=== PATIENT | male | born 1995 | race Two or more races ===

== ENCOUNTER 2020-01-25 16:06 | Emergency (ER) | payer OTHER ==
[~2020-01-25] VITALS: Ht 188 cm; Wt 107.0 kg
[2020-01-25 16:16] VITALS: BP 146/66
--- NOTE | 2020-01-25 16:52 | PHYS DOC ---
General Adult EDM: Chief Complaint: LACERATION/AVULSION HPI: HPI: 24 yo M with no significant pmh, [place] to the ED with complaints of cut to his right leg while he was running outside just prior to arrival. Patient reports he was running downhill, lost his balance, hit his leg, tree branch. Did not hit his head or lose consciousness. Is not on any anticoagulants or new influence of alcohol or drugs. Vaccines are UTD including tetanus. Denies any underlying bone tenderness to the knee or ankle. Review of Systems: Review of Systems: Constitutional: Denies fever or chills HENT: Denies nasal congestion or sore throat Respiratory: Denies cough or shortness of breath Cardiovascular: Denies chest pain or hemoptysis GI: Denies abdominal pain, nausea, vomiting,or diarrhea Musculoskeletal: Denies back pain or joint pain Integument: Denies rash Neurologic: Denies headache, focal weakness or sensory changes Heart Score: Risk Factors: Risk Factors: DM, Current or recent (<one month) smoker, HTN, HLP, family history of CAD, obesity. Risk Scores: Score 0 - 3: 2.5% MACE over next 6 weeks - Discharge Home Score 4 - 6: 20.3% MACE over next 6 weeks - Admit for Clinical Observation Score 7 - 10: 72.7% MACE over next 6 weeks - Early Invasive Strategies Current Medications: Current Meds: Current Medications Medications (Trade) Dose Ordered Sig/[facility] Start Time Stop Time Status Last Admin Dose Admin Lidocaine HCl 20 ml 1X ONCE 01/25/20 17:00 01/25/20 17:01 Neomycin/ Polymyxin/ Bacitracin (Triple Antibiotic Ointment) 1 pkt 1X ONCE 01/25/20 17:00 01/25/20 17:01 Allergies: Allergies: Allergies Coded Allergies Type Severity Reaction Last Updated Verified No Known Drug Allergies 01/25/20 No Physical Exam: PE: Constitutional: Well developed, well nourished, no acute distress, non-toxic appearance. [] HENT: Normocephalic, atraumatic, Eyes: EOMI, conjunctiva normal, no discharge. [] Neck: Normal range of motion, supple, Skin: Warm, dry, no erythema, L-shaped laceration w/skin flap over medial proximal right leg, fat tissue exposed, tip of flap with some dark coloration, minimal debris in wound Extremities: No tenderness, no cyanosis, no clubbing, ROM intact, no edema. [] Neurologic: Alert and oriented X 3, normal motor function, normal sensory function, no focal deficits noted. [] Psychologic: Affect normal, judgement normal, mood normal. [] EKG: EKG: [] Radiology/Procedures: Radiology/Procedures: Indication: Right proximal medial leg laceration, L-shaped into subcutaneous tissue, no fascia visualized Procedure: The patient was placed in the appropriate position and anesthesia around the laceration with 1% lidocaine. The area was then copiously irrigated and debrided. The laceration was closed with 4-0 nylon, total of 8 sutures. The wound area was then dressed with triple antibiotic ointment and sterile dressings.. Total repaired wound length: 5 cm. Other Items: None The patient tolerated the procedure yes. Complications: None. IMAGING REPORT Signed PATIENT: ADENIKE FARRELL AACCOUNT: [id number] : 1995 LOCATION: ER AGE: 24 SEX: M EXAM STATUS: REG ER ORD. PHYSICIAN: KWASI WOOD DO REASON: laceration with tree to knee PROCEDURE: TIBIA FIBULA RIGHT EXAMINATION: TIBIA FIBULA RIGHT CLINICAL HISTORY: Laceration with tree to knee TECHNIQUE: TIBIA FIBULA RIGHT Number of Images/Views: 4 COMPARISON: None FINDINGS: Joints at the knee and ankle appear maintained on limited evaluation. No acute fracture. Small suprapatellar enthesophyte. Mild soft tissue emphysema along the medial aspect of the proximal lower leg. No retained radiopaque foreign body definitively visualized, however, some organic matter such as wood would not be radiopaque. IMPRESSION: Mild soft tissue emphysema medial proximal lower leg. No acute osseous abnormality or evidence of retained radiopaque foreign body as described. Electronically signed by: Kostas Nunes DO (01/25/2020 4:57 PM) [id number] DICTATED AND SIGNED BY: KOSTAS NUNES DO DATE: 01/25/20 1657 CC: PCP,ROSELIA; KWASI WOOD DO ~ Course & Med Decision Making: Course & Med Decision Making Pertinent Labs and Imaging studies reviewed. (See chart for details) S/p laceration with repair. Wound care instructions given. Strict ED return precautions given for severe pain, neuro deficits, rash or fever. Encouraged urgent outpatient follow-up with PMD for suture removal in 7 to 10 days. Life- threatening processes were considered but are low suspicion at this time, given history and physical exam. Pt was educated on all prescription medications and adverse effects. All patient's questions were answered and pt was stable at time of discharge. Differential includes intracranial hemorrhage, diffuse axonal injury, spinal cord syndrome, unstable cervical fracture or SCIWORA, fractures or joint dislocations, neurovascular injuries, organ injury or laceration, pneumothorax, pneumoperitoneum, pericardial tamponade, unstable pelvic fracture, compartment syndrome, flail chest or respiratory distress, burn injury or asphyxiation I spoken with the patient and her caregivers. I explained the patient's condition, diagnoses and treatment plan based on the information available to me at this time. I have answered the patient and her caregiver's questions and addressed any concerns. The patient and her caregivers have a good understanding of patient's diagnosis, condition and treatment plan as can be expected at this point. Vital signs have been stable. Patient's condition is s table and appropriate for discharge from the emergency department. Patient will pursue further outpatient evaluation with primary care physician or other designated or consulting physician as outlined in the discharge instructions. The patient and/or caregivers are agreeable to this plan of care and follow-up instructions have been explained in detail. The patient and/or caregivers have received these instructions in written form and have expressed an understanding of the discharge instructions. The patient and/or caregivers are aware that any significant change of condition or worsening of symptoms should prompt immediate return to this or the closest emergency department or call to 911. Kerry Disclaimer: Kerry Disclaimer: This electronic medical record was generated, in whole or in part, using a voice recognition dictation system. Departure Departure: Impression: Primary Impression: Laceration of right lower leg Disposition: HOME/RESIDENCE PRIOR TO ADM Condition: STABLE Referrals: PCP,NO (PCP) Patient Instructions: Laceration Care, Adult, Sutured Wound Care Additional Instructions: SUTURE REMOVAL IN 7-10 DAYS Justification of Admission: Justification of Admission: Justification of Admission Dx: N/A KWASI WOOD DO Jan 25, 2020 16:52
[2020-01-25] MEDS ORDERED: LIDOCAINE 2% 20 ML VIAL. IJ ONE (17:00)
[2020-01-25] MEDS ORDERED: NEOMY/BACITR/POLYMYXIN OINT PACKET. TP ONE (17:00)
--- NOTE | 2020-01-25 17:00 | RAD ---
EXAMINATION: TIBIA FIBULA RIGHT CLINICAL HISTORY: Laceration with tree to knee TECHNIQUE: TIBIA FIBULA RIGHT Number of Images/Views: 4 COMPARISON: None FINDINGS: Joints at the knee and ankle appear maintained on limited evaluation. No acute fracture. Small suprapatellar enthesophyte. Mild soft tissue emphysema along the medial aspect of the proximal lower leg. No retained radiopaque foreign body definitively visualized, however, some organic matter such as wood would not be radiopaque. IMPRESSION: Mild soft tissue emphysema medial proximal lower leg. No acute osseous abnormality or evidence of retained radiopaque foreign body as described. Electronically signed by: Kostas Nunes DO (01/25/2020 4:57 PM) [id number]
== END 2020-01-25 17:37 | disposition home or self-care (01) ==
LOC: ER 16:06
DX: S81.811A Laceration without foreign body, right lower leg, initial encounter (principal); W22.8XXA Striking against or struck by other objects, initial encounter; Y93.02 Activity, running; Y92.828 Other wilderness area as the place of occurrence of the external cause; Y99.8 Other external cause status
CPT/HCPCS: 12002; 73590; 99283; J2001

== ENCOUNTER 2020-02-02 15:28 | Emergency (ER) | payer OTHER ==
[~2020-02-02] VITALS: Ht 188 cm; Wt 107.0 kg
[2020-02-02 15:28] VITALS: BP 138/72
--- NOTE | 2020-02-02 15:41 | PHYS DOC ---
Past History Past Medical History: No Pertinent History Past Surgical History: No Surgical History Alcohol Use: Occasionally General Adult EDM: Chief Complaint: SUTURE/STAPLE REMOVAL HPI: HPI: Patient is a 24-year-old male with a presents for suture removal. Sutures were placed 8 days ago. Patient denies any fevers chills redness or drainage from the wound. Patient does have some mild pain locally. Review of Systems: Review of Systems: Constitutional: Denies fever or chills Eyes: Denies change in visual acuity HENT: Denies nasal congestion or sore throat Respiratory: Denies cough or shortness of breath Cardiovascular: Denies chest pain or edema GI: Denies abdominal pain, nausea, vomiting, bloody stools or diarrhea : Denies dysuria Musculoskeletal: Denies back pain or joint pain Integument: Denies rash Neurologic: Denies headache, focal weakness or sensory changes Endocrine: Denies polyuria or polydipsia Lymphatic: Denies swollen glands Psychiatric: Denies depression or anxiety Heart Score: Risk Factors: Risk Factors: DM, Current or recent (<one month) smoker, HTN, HLP, family history of CAD, obesity. Risk Scores: Score 0 - 3: 2.5% MACE over next 6 weeks - Discharge Home Score 4 - 6: 20.3% MACE over next 6 weeks - Admit for Clinical Observation Score 7 - 10: 72.7% MACE over next 6 weeks - Early Invasive Strategies Allergies: Allergies: Allergies Coded Allergies Type Severity Reaction Last Updated Verified No Known Drug Allergies 01/25/20 No Physical Exam: PE: Constitutional: Well developed, well nourished, no acute distress, non-toxic appearance. HENT: No trismus, external ears normal Eyes: Conjunctiva clear, EOMI Neck: Normal range of motion, no tenderness, supple, no stridor. Cardiovascular: Regular rate/rhythm, peripheral pulse intact, [employer]CH[employer] intact Lungs & Thorax: No respiratory distress Abdomen: No distension Skin: Diffuse: Intact, no rash Back: Full ROM Extremities: Healing laceration to right medial proximal tibia without signs of infection Neurologic: Alert and oriented X 3, normal motor function, , no focal deficits noted. Psychologic: Affect normal, judgement normal, mood normal. EKG: EKG: [] Radiology/Procedures: Radiology/Procedures: [] Course & Med Decision Making: Course & Med Decision Making Pertinent Labs and Imaging studies reviewed. (See chart for details) [] Sutures have only been in 8 days I would like them and at least 12. Discussed with the patient to return in 4 days for suture removal. MSE performed. Kerry Disclaimer: Kerry Disclaimer: This electronic medical record was generated, in whole or in part, using a voice recognition dictation system. Departure Departure: Impression: Primary Impression: Visit for wound check Disposition: HOME/RESIDENCE PRIOR TO ADM (mse) Condition: STABLE Referrals: PCP,NO (PCP) Justification of Admission: Justification of Admission: Justification of Admission Dx: N/A SONAM MALCOLM MD Feb 02, 2020 15:40
== END 2020-02-02 15:40 | disposition home or self-care (01) ==
LOC: ER 15:28
DX: S81.811D Laceration without foreign body, right lower leg, subsequent encounter (principal); X58.XXXD Exposure to other specified factors, subsequent encounter
CPT/HCPCS: 99281

== ENCOUNTER 2020-02-10 13:50 | Emergency (ER) | payer OTHER ==
[~2020-02-10] VITALS: Ht 188 cm; Wt 104.5 kg
[2020-02-10 14:04] VITALS: BP 122/87
--- NOTE | 2020-02-10 14:26 | PHYS DOC ---
Past History Past Medical History: No Pertinent History Past Surgical History: No Surgical History Alcohol Use: Occasionally General Adult EDM: Chief Complaint: SUTURE/STAPLE REMOVAL HPI: HPI: Patient is a well-appearing 24-year-old male who presents with chief complaint of suture removal. He states he injured his right leg approximate 2 weeks ago after striking a tree branch. He states he did have sutures were placed. He states he has been using rubbing alcohol to keep the wound clean and dry. Denies any redness. Denies any drainage. No other complaints. Review of Systems: Review of Systems: Constitutional: Denies fever or chills Eyes: Denies change in visual acuity HENT: Denies nasal congestion or sore throat Respiratory: Denies cough or shortness of breath Cardiovascular: Denies chest pain or edema GI: Denies abdominal pain, nausea, vomiting, bloody stools or diarrhea : Denies dysuria Musculoskeletal: Denies back pain or joint pain Integument: Positive for laceration Neurologic: Denies headache, focal weakness or sensory changes Endocrine: Denies polyuria or polydipsia Lymphatic: Denies swollen glands Psychiatric: Denies depression or anxiety Heart Score: Risk Factors: Risk Factors: DM, Current or recent (<one month) smoker, HTN, HLP, family history of CAD, obesity. Risk Scores: Score 0 - 3: 2.5% MACE over next 6 weeks - Discharge Home Score 4 - 6: 20.3% MACE over next 6 weeks - Admit for Clinical Observation Score 7 - 10: 72.7% MACE over next 6 weeks - Early Invasive Strategies Allergies: Allergies: Allergies Coded Allergies Type Severity Reaction Last Updated Verified No Known Drug Allergies 01/25/20 No Physical Exam: PE: Constitutional: Well developed, well nourished, no acute distress, non-toxic appearance. [] HENT: Normocephalic, atraumatic, bilateral external ears normal, oropharynx moist, no oral exudates, nose normal. [] Eyes: PERRLA, EOMI, conjunctiva normal, no discharge. [] Neck: Normal range of motion, no tenderness, supple, no stridor. [] Cardiovascular:Heart rate regular rhythm, no murmur [] Lungs & Thorax: Bilateral breath sounds clear to auscultation [] Abdomen: Bowel sounds normal, soft, no tenderness, no masses, no pulsatile masses. [] Skin: 3 cm well-healed laceration noted just inferior to the right kneecap. No surrounding induration or erythema. No palpable fluctuance. Back: No tenderness, no CVA tenderness. [] Extremities: No tenderness, no cyanosis, no clubbing, ROM intact, no edema. [] Neurologic: Alert and oriented X 3, normal motor function, normal sensory function, no focal deficits noted. [] Psychologic: Affect normal, judgement normal, mood normal. [] EKG: EKG: [] Radiology/Procedures: Radiology/Procedures: [] Course & Med Decision Making: Course & Med Decision Making Pertinent Labs and Imaging studies reviewed. (See chart for details) [] Patient is well-appearing 24-year-old male. Sutures moved at bedside. No signs of clinical infection. Encouraged to use Neosporin to help moisten the skin surrounding the laceration. Stable for discharge. Dragon Disclaimer: Dragon Disclaimer: This electronic medical record was generated, in whole or in part, using a voice recognition dictation system. Departure Departure: Impression: Primary Impression: Visit for suture removal Disposition: 01 HOME/RESIDENCE PRIOR TO ADM Condition: STABLE Referrals: PCP,UNKNOWN (PCP) Patient Instructions: Suture Removal Additional Instructions: Please follow with your primary care physician later this week. LYNDA CARMONA DO Feb 10, 2020 14:26
== END 2020-02-10 14:30 | disposition home or self-care (01) ==
LOC: ER 13:50
DX: S81.811D Laceration without foreign body, right lower leg, subsequent encounter (principal); X58.XXXD Exposure to other specified factors, subsequent encounter
CPT/HCPCS: 99282